=== PATIENT | male | born 1995 | race Hispanic/Latino ===

== ENCOUNTER 2020-02-23 16:45 | Emergency (ER) | payer BC | END 2020-02-23 17:12 | disposition home or self-care (01) | LOC: EDH 16:45 | DX: L05.01 Pilonidal cyst with abscess (principal) | CPT/HCPCS: 99281 ==

== ENCOUNTER 2020-11-30 19:26 | Emergency (ER) | payer BC ==
[~2020-11-30] VITALS: Ht 172.7 cm; Wt 86.2 kg
[2020-11-30 19:28] VITALS: BP 133/88
[2020-11-30] MEDS ORDERED: IBUPROFEN 600 MG TABLET ONE (21:52)
[2020-11-30] MEDS ORDERED: IBUPROFEN 600 MG TABLET PO ONE (22:00)
== END 2020-11-30 22:11 ==
LOC: EDH 19:26
DX: S00.83XA Contusion of other part of head, initial encounter (principal); S20.219A Contusion of unspecified front wall of thorax, initial encounter; Y04.0XXA Assault by unarmed brawl or fight, initial encounter; Y93.89 Activity, other specified; Y92.89 Other specified places as the place of occurrence of the external cause; Y99.8 Other external cause status
CPT/HCPCS: 70450; 71250